=== PATIENT | female | born 1965 ===

== ENCOUNTER 2023-11-30 08:36 | Outpatient (CLI) | payer OTHER ==
[2023-11-30] MEDS ORDERED: NEURONTIN300 MG PO (08:56)
[2023-11-30] MEDS ORDERED: CHILDREN'S ASPI81 MG PO (08:56)
[2023-11-30] MEDS ORDERED: TYLENOL EXTRA500 MG PO (08:58)
[2023-11-30 11:00] LABS: T4 FREE 0.86 NG/ML (0.76-1.46); TSH 1.28 uIU/mL (0.358-3.74)
== END 2023-11-30 08:44 | disposition home or self-care (01) ==
LOC: LAB 08:36
PROVIDERS: ATTEND Obstetrics & Gynecology
DX: E03.9 Hypothyroidism, unspecified (principal); I10 Essential (primary) hypertension; Z00.00 Encounter for general adult medical examination without abnormal findings; E78.9 Disorder of lipoprotein metabolism, unspecified; Z11.4 Encounter for screening for human immunodeficiency virus [HIV]; Z12.11 Encounter for screening for malignant neoplasm of colon; E55.9 Vitamin D deficiency, unspecified; Z21 Asymptomatic human immunodeficiency virus [HIV] infection status; R79.9 Abnormal finding of blood chemistry, unspecified; R79.89 Other specified abnormal findings of blood chemistry

== ENCOUNTER 2023-12-04 05:20 | Day surgery (SDC) | payer OTHER ==
[2023-11-30 09:29] LABS: HEMATOCRIT 42.5 % (36.0-45.00); HEMOGLOBIN 14.5 g/dL (12.0-15.00); MEAN CELL VOLUME 86.2 fL (80.00-100.00); MEAN CORPUSCULAR HEMOGLOBIN 29.3 pg (27.00-32.0); PLATELET COUNT 209 K/uL (150-450); RED BLOOD COUNT 4.92 M/uL (4.00-6.00); RED CELL DISTRIBUTION WIDTH 13.4 % (11.5-14.5)
[2023-11-30 09:40] LABS: PH,URINE 6.5 (5.0-8.0); URINE APPEARANCE Clear; URINE BILIRRUBIN Negative (NEGATIVE); URINE BLOOD Negative; URINE COLOR Yellow; URINE GLUCOSE Negative (NEGATIVE); URINE LEUKOCYTE Negative; URINE NITRATE Negative; URINE PROTEIN Negative (NEGATIVE); URINE UROBILINOGEN 0.2 E.U./dl
[2023-11-30 09:42] LABS: URINE WBC 1.8 uL (0.0-23.2)
[2023-11-30 09:51] LABS: URINE BACTERIA 3.7 uL (0.0-1933); URINE EPITHELIAL CELLS 0.3 uL (0.0-38.8); URINE RBC 1.6 uL (0.0-20.8)
[2023-11-30 10:05] LABS: INR 0.95; PARTIAL THROMBOPLASTIN TIME 26.2 SECONDS (22.0-34.0)
[2023-11-30 10:48] LABS: BILIRUBIN TOTAL 0.41 mg/dL (0.3-1.2); CREATININE SERUM 0.64 mg/dL (0.55-1.02); GFR 94.98; GLOBULINA 3.4 G/DL (2.4-3.5); POTASSIUM 3.99 mEq/L (3.5-5.1); TOTAL PROTEIN 7.4 gm/dL (6.4-8.2)
[~2023-12-04 05:20] MED LIST: CHILDREN'S ASPI81 MG PO; NEURONTIN300 MG PO; TYLENOL EXTRA500 MG PO
[2023-12-04] MEDS ORDERED: POVIDONE-IODINE 118 ML BOTT TOP ONE (10:25)
[2023-12-04] MEDS ORDERED: ONDANSETRON HCL 2 MG/ML VIAL IV ONE (10:45)
[2023-12-04] MEDS ORDERED: KETOROLAC TROMETHAMINE 30 MG VIAL IV ONE (11:00)
[2023-12-04] MEDS ORDERED: KETOROLAC TROMETHAMINE 30 MG VIAL ONE (14:27)
== END 2023-12-04 16:50 | disposition home or self-care (01) ==
LOC: CIR.AMB
PROVIDERS: ATTEND Obstetrics & Gynecology
DX: N85.00 Endometrial hyperplasia, unspecified (principal); N95.0 Postmenopausal bleeding; N85.8 Other specified noninflammatory disorders of uterus; Z88.1 Allergy status to other antibiotic agents; Z88.0 Allergy status to penicillin; Z91.09 Other allergy status, other than to drugs and biological substances; I10 Essential (primary) hypertension; M19.90 Unspecified osteoarthritis, unspecified site; H52.209 Unspecified astigmatism, unspecified eye